=== PATIENT | male | born 2000 | race Caucasian/White ===

== ENCOUNTER 2021-06-27 12:46 | Outpatient (CLI) | payer OTHER | END 2021-06-27 12:47 | disposition home or self-care (01) | LOC: COV 12:46 | PROVIDERS: ATTEND Family Medicine | DX: Z20.822 Contact with and (suspected) exposure to COVID-19 (principal) ==

== ENCOUNTER 2021-10-25 07:33 | Outpatient (CLI) | payer BC ==
[2021-10-25 15:57] LABS: ALBUMIN 4.4 g/dL (3.2-5.5); ALBUMIN/GLOBULIN RATIO 1.5 (1.0-2.2); BILIRUBIN,TOTAL 0.9 mg/dL (0.2-1.0); CALCIUM 9.8 mg/dL (8.5-10.3); POTASSIUM 4.2 mmol/L (3.5-5.0); TOTAL PROTEIN 7.4 g/dL (6.7-8.2)
[2021-10-25 22:56] LABS: NEISSERIA GONORRHOEAE DNA NEGATIVE (NEGATIVE)
[2021-10-25 23:07] LABS: CHLAMYDIA TRACHOMATIS DNA POSITIVE (NEGATIVE)
[2021-10-26 09:16] LABS: HEPATITIS C ANTIBODY NON-REACTIVE (NON-REACTIVE)
[2021-10-26 15:46] LABS: HIV AG/AB 4TH GEN NON-REACTIVE (NON-REACTIVE)
== END 2021-10-25 07:34 | disposition home or self-care (01) ==
LOC: LAB.S 07:33
PROVIDERS: ATTEND Physician Assistant Medical
DX: Z20.2 Contact with and (suspected) exposure to infections with a predominantly sexual mode of transmission (principal)
CPT/HCPCS: 36415; 80053; 86592; 86803; 87389; 87491; 87591; 87661

== ENCOUNTER 2021-11-05 09:52 | Outpatient (CLI) | payer BC ==
[2021-11-05 22:31] LABS: CHLAMYDIA TRACHOMATIS DNA NEGATIVE (NEGATIVE); NEISSERIA GONORRHOEAE DNA NEGATIVE (NEGATIVE)
== END 2021-11-05 09:53 | disposition home or self-care (01) ==
LOC: LAB.S 09:52
PROVIDERS: ATTEND Physician Assistant Medical
DX: Z20.2 Contact with and (suspected) exposure to infections with a predominantly sexual mode of transmission (principal)
CPT/HCPCS: 87491; 87591; 87661

== ENCOUNTER 2021-12-10 08:00 | Outpatient (CLI) | payer BC ==
[2021-12-11 00:27] LABS: CHLAMYDIA TRACHOMATIS DNA NEGATIVE (NEGATIVE); NEISSERIA GONORRHOEAE DNA NEGATIVE (NEGATIVE)
== END 2021-12-10 23:59 | disposition home or self-care (01) ==
LOC: LAB.S 08:00
PROVIDERS: ATTEND Registered Nurse
DX: Z20.2 Contact with and (suspected) exposure to infections with a predominantly sexual mode of transmission (principal)
CPT/HCPCS: 87491; 87591; 87661